=== PATIENT | male | born 1970 | race Caucasian/White ===

== ENCOUNTER 2017-07-11 13:56 | Emergency (ER) | payer BC ==
[2017-07-11] MEDS ORDERED: KETOROLAC TROMETHAMINE 60 MG/2 ML VIAL IM ONE ×2 (14:23→14:31)
--- NOTE | 2017-07-11 14:31 | ERNOTE ---
Integumentary HPI - General Presenting Symptoms: rash Time Seen by Provider: 07/11/17 14:11 Source: patient Exam Limitations: no limitations - Immun/Allergies/Home Medications Immunizations: IMMUNIZATION HX Immunizations Up to Date Yes History of Influenza Vaccine No Hx Pneumococcal Vaccination Yes Allergies/Adverse Reactions: Allergies Allergy/AdvReac Type Severity Reaction Status Date / Time erythromycin base Allergy Verified 07/11/17 14:09 Home Medications: HOME MEDICATIONS Sulfamethoxazole/Trimethoprim [Bactrim Ds] 1 tab PO BID #20 tab 07/11/17 [Last Taken Unknown] - History of Present Illness Narrative: Patient was treated by his physician for an insect bite a few weeks ago and treated with amoxicillin. four days ago he noticed a lesion in his right groin that looked similar but has been enlarging rapidly. three days ago he started to have a fever up to 103 , chills and malaise. He started to take left over amoxicillin (500mg bid) two days ago, last ibuprofen this am. Location: Reports: lower extremity Quality: Reports: painful Severity: moderate Exposure: Reports: no cause identified Prior Treatment: Reports: currently on antibiotics. Denies: recently seen Review of Systems - Review of Systems Constitutional: Present: fever, chills. Absent: recent illness ENT: Absent: nose congestion, sore throat Respiratory: Absent: shortness of breath Cardiology: Absent: chest pain Gastrointestinal/Abdominal: Absent: nausea, vomiting, abdominal pain Genitourinary: Present: no symptoms reported. Absent: frequency, dysuria Skin: Present: See HPI Neurological: Present: headache. Absent: weakness, numbness Psych: Present: no symptoms reported - Patient's Past Medical History Patient History - Medical: No pertinent hx Patient History - Cardiac/Respiratory: No pertinent hx Patient History - Cancer: No Hx of Cancer Patient History - Surgical Procedures: Vasectomy Patient History - Other: None - Social History Living Situations: home Psych History: No pertinent hx Smoking Status: Never smoker Alcohol Use: rarely Drug Use: none - Immunizations Immunizations Up to Date: Yes Hx Pneumococcal Vaccination: Yes History of Influenza Vaccine: No Physical Exam - Physical Exam General Appearance: Present: wd/wn, alert, no apparent distress Respiratory: Present: no respiratory distress, normal breath sounds, no accessory muscle use, lungs clear Cardiovascular/Chest: Present: regular rate, rhythm, no murmur Gastrointestinal/Abdominal: Present: normal bowel sounds, nontender, nondistended, soft Male Genitals Exam: Present: other - righ groin large area of induration and swelling not extending to testicles, overlying erythema extending to lateral abdominal wall, no induration of abdominal wall, no fluctuance, small lymphnodes in groin Neurological Exam: Present: alert, oriented, normal mood/affect Skin Exam: Present: normal color, warm/dry ED Progress - Results and Orders Patient's Lab Results:: I have reviewed the patient's lab results. - Vital Signs Patient's Vital Signs:: I have reviewed the patient's vital signs. Vital Signs: Vital Signs 07/11/17 14:04 Temperature 37.7 C H Pulse Rate 99 Respiratory 16 Rate Blood Pressure 141/92 O2 Sat by Pulse 100 Oximetry - CT/Ultrasound CT/Ultrasound Narrative: ultrasound: soft tissue swelling consistent with cellulitis, no abscess - Progress/Reassessment Chief Complaint: Insect Bite Progress Note-Subjective: 07/11/17 15:10 patient comfortable while resting, still painful with walking, discussed lab results, ultrasound results pending 07/11/17 15:48 discussed ultrasound results and follow up Departure Clinical Impression: Cellulitis of groin, right - Departure Disposition: Home self-care Condition: Good Instructions: Cellulitis, Adult, [id number] Additional Instructions: if the redness and swelling increase return to the ER at any time, otherwise follow up with your doctor at home after the weekend, you will need close follow up to make sure you don't develop an abscess that needs to be drained, take ibuprofen (200mg) four tablets every eight hours as needed for pain and fever, you may also take tylenol Prescriptions: Sulfamethoxazole/Trimethoprim [Bactrim Ds] 1 tab PO BID #20 tab
[2017-07-11 14:46] LABS: Hematocrit 40.8 % (42.0-52.0); Mean Cell Volume 81.9 fl (78-100); Mean Corpuscular Hemoglobin 28.1 pg (27-31); Mean Corpuscular Hgb Conc 34.3 g/dl (32-36); Mean Platelet Volume 9.6 fl (6.0-9.5); Neutrophil # 19.8 K/mm3 (1.3-6.0); Neutrophil % 86.6 % (42-75.0); Platelet Count 271 K/mm3 (150-450); Red Blood Count 4.98 M/mm3 (4.7-6.0); Red Cell Distribution Width 13.2 % (11.5-14.0); White Blood Count 22.9 K/mm3 (4.0-10.5)
[2017-07-11 15:01] LABS: Albumin * 3.4 gm/dl (3.4-5.0); BUN/Creatinine Ratio 14.9 (9.0-21.6); Bilirubin, Total 0.7 mg/dL (0.0-1.1); Ca. Corrected For Albumin 9.3 mg/dL (8.4-10.2); Calcium * 9.1 mg/dL (7.9-10.9); Carbon Dioxide 27.6 mmol/L (24-32.6); Potassium 3.6 mmol/L (3.4-4.6); Total Protein 7.6 gm/dL (6.2-8.2)
[2017-07-11 15:55] VITALS: BP 146/74
== END 2017-07-11 16:06 | disposition home or self-care (01) ==
LOC: ER 13:56
DX: L03.314 Cellulitis of groin (principal)